=== PATIENT | female | born 1950 | race Two or more races ===

== ENCOUNTER 2018-09-03 11:32 | Emergency (ER) | payer OTHER ==
[~2018-09-03] VITALS: Ht 162.6 cm; Wt 99.8 kg
[2018-09-03] MEDS ORDERED: ATENOLOL-CHLOR1 EACH (12:55)
[2018-09-03] MEDS ORDERED: AMBIEN10 MG (12:55)
[2018-09-03] MEDS ORDERED: SYNTHROID75 MCG (12:55)
== END 2018-09-03 17:18 | disposition home or self-care (01) ==
LOC: ER 11:32
DX: K80.80 Other cholelithiasis without obstruction (principal); R16.0 Hepatomegaly, not elsewhere classified

== ENCOUNTER 2018-11-04 07:00 | Day surgery (SDC) | payer OTHER ==
[~2018-11-04] VITALS: Ht 162.6 cm; Wt 102.1 kg
[~2018-11-04 07:00] MED LIST: AMBIEN10 MG; ATENOLOL-CHLOR1 EACH; CALCI PO; FOLIC ACID PO; MULTIPLE VITAM1 EACH PO; PROTONIX40 M1 PO; SYNTHROID75 MCG
[2018-11-04] MEDS ORDERED: FOLIC ACID0.8 MG PO (08:21)
[2018-11-04] MEDS ORDERED: CALCIUM500 M1 PO (08:24)
[2018-11-04] MEDS ORDERED: PERCOCET 5-3251 EACH PO (12:03)
== END 2018-11-04 13:00 | disposition home or self-care (01) ==
LOC: CIR.AMB 07:00 → SURH 07:28 → O/R 07:28 → SURH 10:30 → EDSTATUS 11:15 → CIR.AMB 13:00 → O/R 15:45
DX: K80.10 Calculus of gallbladder with chronic cholecystitis without obstruction (principal); K82.8 Other specified diseases of gallbladder

== ENCOUNTER 2018-11-08 09:19 | Inpatient (IN) | payer OTHER ==
[~2018-11-08] VITALS: Ht 162.6 cm; Wt 102.1 kg
[~2018-11-08 09:19] MED LIST changes: +CALCIUM500 M1 PO; +FOLIC ACID0.8 MG PO; +PERCOCET 5-3251 EACH PO
--- NOTE | 2018-11-08 09:46 | NUR ---
SE RECIBE PTE. FEMENINA ALERTA CONCIENTE Y ORIENTADA EN SILLA DE MAE QUE REFIERE DOLOR EN AREA DE OPERACION DE VESICULA EL VIERNES REF DOLOR EN VARIAS AREAS DEL CUERPO.
--- NOTE | 2018-11-08 12:30 | NUR ---
PACIENTE ALERTA Y ORIENTADA X3, CON BUEN PATRON RESPIRATORIO Y SIGNOS VITALES REFIERE DOLOR ABDOMINO/PELVICO. SE ELVIRA MUESTRAS BAJO MEDIDAS ASEPTICAS, SE ADMINISTRAN MEIDCAMENTOS NONI ORDENADOS. SE ABRE VENA CON ANGIO #20 PATENTE Y ADARSH DE EDEMA. SE CRISTOBAL TRANQUILA EN ASHOK HASTA SER REEVALUADA.
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
[2018-11-12] MEDS ORDERED: AMOX1TAB5 PO (12:05)
== END 2018-11-12 12:28 | disposition home or self-care (01) | DRG 392 ==
LOC: ER 09:19 → SURG 17:45
PROVIDERS: ADMIT Surgery
PROC: CF1C1ZZ Planar Nuclear Medicine Imaging of Hepatobiliary System, All using Technetium 99m (Tc-99m) (ICD-10-PCS; principal; 2018-11-09)
DX: K59.09 Other constipation (principal); J90 Pleural effusion, not elsewhere classified; J98.11 Atelectasis; E80.6 Other disorders of bilirubin metabolism; R16.0 Hepatomegaly, not elsewhere classified; E86.0 Dehydration; I11.9 Hypertensive heart disease without heart failure; E03.8 Other specified hypothyroidism; E66.01 Morbid (severe) obesity due to excess calories; Z98.84 Bariatric surgery status